=== PATIENT | female | born 1975 | race Caucasian/White ===

== ENCOUNTER 2020-04-18 21:37 | Emergency (ER) | payer SELFPAY ==
[~2020-04-18] VITALS: Ht 172.7 cm; Wt 65.8 kg
--- OUTSIDE RECORDS SUMMARY | 2020-04-18 21:40 | XMS ---
PreManage Notification: JOSH PARSON Security Rn Iv Therapy Events No recent Security Events currently on file [facility] There are no care providers on record at this time. Lucia has no Care Guidelines for this patient. [place] VISIT COUNT (12 MO.) 1 [facility]ERO[facility] TOTAL 1 NOTE: Visits indicate total known visits. ED/C VISIT TRACKING (12 MO.) 04/18/2020 21:38 [facility] [place] TYPE: Emergency COMPLAINT: - HEART RATE ISSUES/SOB INPATIENT VISIT TRACKING (12 MO.) No inpatient visits to display in this time frame [email or web address]
[2020-04-18] MEDS ORDERED: LORAZEPAM1 MG PO (21:54)
[2020-04-18] MEDS ORDERED: LEVOTHYROXINE112 MCG PO (21:54)
[2020-04-18] MEDS ORDERED: ZOLPIDEM TARTRA10 MG PO (21:54)
--- NOTE | 2020-04-19 13:37 | EKG ---
[facility] [address] [place] [address] Signed Sinus rhythm with occasional premature ventricular complexes and premature atrial complexes Low voltage QRS Borderline ECG No previous ECGs available Confirmed by DARREN KUMARI MD ([id number] on 04/19/2020 1:36:56 PM Electronically Signed By: DARREN KUMARI MD 04/19/20 1337 PATIENT NAME: JOSH PARSON Electrocardiogram DATE OF : 71 PHYSICIAN: DARREN KUMARI MD REPORT #: [id number] REPORT IS CONFIDENTIAL AND NOT TO BE RELEASED WITHOUT AUTHORIZATION
== END 2020-04-19 00:01 | disposition home or self-care (01) ==
LOC: ED 21:37
DX: R00.2 Palpitations (principal); Z88.5 Allergy status to narcotic agent; Z79.899 Other long term (current) drug therapy
CPT/HCPCS: 0297T; 0298T; 71045; 80053; 83735; 84443; 84484; 85025; 93005; 93010; 99285-25